=== PATIENT | male | born 1985 | race Caucasian/White ===

== ENCOUNTER 2021-10-05 08:08 | Outpatient (CLI) | payer OTHER, SELFPAY ==
--- NOTE | ~2021-10-05 | US_ITS ---
EXAMINATION: US abdomen limited EXAM DATE: 10/05/2021 08:46 INDICATION: R10.11 - Right upper quadrant pain TECHNIQUE: Multiple grayscale and Doppler images of the abdomen right upper quadrant were obtained (b y a technologist who performed the scan) and subsequently reviewed. There is no prior study for juvneal argueta. FINDINGS: The pancreatic head and body are normal in appearance. The pancreatic tail is not visualized. The l iver has normal echogenicity and contour. There are no focal liver lesions identified. There is no evidence of intrahepatic biliary duct dilation. Portal venous flow was seen in the hepatopedal, nor mal direction and has normal Doppler waveform. No right-sided hydronephrosis. Common bile duct measures 3 mm, which is normal. The gallbladder wall is normal in thickness, with ex pected amount of distention. No sonographic evidence of pericholecystic fluid. Large stone or stone s within the gallbladder. Technologist performing exam reports patient did not demonstrate sonograph ic Shafer's sign. Please note that this sign is less reliable in patients who have received pain med ication. IMPRESSION: 1. Cholelithiasis. Reviewed, dictated and finalized at location A. [employer] SUPERVISOR IMPRESSION: 1. Cholelithiasis.
== END 2021-10-05 08:09 | disposition home or self-care (01) ==
PROVIDERS: PCP Family Medicine; Visit Provider Family Medicine
DX: R10.11 Right upper quadrant pain (principal); K80.20 Calculus of gallbladder without cholecystitis without obstruction
CPT/HCPCS: 76705

== ENCOUNTER 2023-10-25 19:23 | Observation (INO) | payer OTHER, SELFPAY ==
--- NOTE | ~2023-10-25 | CT_ITS ---
EXAMINATION: CT abdomen pelvis w con DATE: 10/25/2023 21:07 INDICATION: ruq pain TECHNIQUE: Computed tomography (CT) of the abdomen and pelvis was performed with 100 mL Omnipaque-350 intravenous contrast. Automated exposure control and iterative reconstruction technique were employe d. The dose-length product was 475.77 mGy-cm. COMPARISON: Ultrasound abdomen 10/05/2021. FINDINGS: Lower thorax: Unremarkable Liver: Simple left lobe cyst. Biliary/Gallbladder: Prominent gallbladder with pericholecystic fluid/wall edema and mild inflammator y change. Likely gallstone lodged at the gallbladder neck. No bile duct dilation. Pancreas: No mass or duct dilation. Spleen: Normal. Adrenals:No mass. Kidneys: No suspicious mass, obstructing stone, or hydronephrosis. Left midpole scar. GI tract: Mild distal esophageal and gastric wall edema. Small gastric diverticulum. No small bowel d ilation. Mild dilation of the ascending and transverse colon, abrupt caliber change in the proximal d escending colon where there may be a small degree of shouldering present. Normal appendix. Mesentery/Peritoneum: No ascites, mass, or free air. Retroperitoneum: No mass. Mild atherosclerotic calcifications. Pelvis: Bladder line prostatomegaly, with calcifications. Mild bladder wall thickening in a partially distended urinary bladder. Small volume free pelvic fluid. Soft Tissues: Soft tissues and body wall unremarkable. Bones: No acute osseous finding. IMPRESSION: Mild esophagitis/gastritis. Gallbladder findings may represent acute cholecystitis in the appropriate clinical context. Mild proximal large bowel dilation, with abrupt caliber change in the proximal descending colon, wher e a small circumferential mass may be present. Recommend timely referral for colonoscopy. Borderline prostatomegaly. Cystitis versus wall thickening from incomplete urinary bladder distention or outlet obstruction. Reviewed, dictated and finalized at location K. MINER IMPRESSION: Mild esophagitis/gastritis. Gallbladder findings may represent acute cholecystitis in the appropriate clini elaine context. Mild proximal large bowel dilation, with abrupt caliber change in the proximal descending colon, where a small circumferential mass may be present. Recommend timely referral for colonoscopy. Borderline prostatomegaly. Cystitis versus wall thickening from incomplete urinary bladder distention or o utlet obstruction.
[2023-10-25 19:24] VITALS: BP 122/68; PULSE 79; RESP 16; TEMP 36.5; O2SAT 100
[2023-10-25 20:26] VITALS: BP 130/75; PULSE 71; RESP 18; O2SAT 100
[2023-10-25 20:31] LABS: Basophils Absolute Auto 0.1 K/mm3 (0.0-0.1); Basophils Percent Auto 0.5 % (0.2-1.2); Eosinophils Absolute Auto 0.1 K/mm3 (0-0.3); Eosinophils Percent Auto 0.8 % (0-4.4); Hematocrit 44.5 % (42.0-52.0); Immature Granulocyte Absolute 0.04 K/mm3 (0.00-0.031); Immature Granulocyte Percent A 0.3 % (0-0.5); Lymphocytes Absolute Auto 1.68 K/mm3 (0.9-3.2); Mean Corpuscular HGB Conc 33.7 g/dl (32-36); Mean Corpuscular Hemoglobin 31.1 pg (26-34); Mean Corpuscular Volume 92.1 fl (80-100); Mean Platelet Volume 11.9 fl (7.4-10.4); Monocytes Absolute Auto 1.2 K/mm3 (0.1-0.6); Monocytes Percent Auto 9.4 % (2.6-8.5); Neutrophils Absolute Auto 9.9 K/mm3 (1.3-6.7); Platelet Count Result 222 k/mm3 (150-375); Red Blood Count 4.83 M/mm3 (4.6-6.20); Red Cell Distribution Width 12.4 % (11.5-14.5)
[2023-10-25 20:42] LABS: Alanine Aminotransferase 17 U/L (6-50); Albumin Level 3.8 g/dL (3.5-5.1); Alkaline Phosphatase 63 U/L (38-126); Anion Gap 6 mmol/L (8-16); Aspartate Amino Transferase 19 U/L (17-59); Bilirubin,Total 1.1 mg/dL (0.2-1.3); Blood Urea Nitrogen 8 mg/dL (9-20); Carbon Dioxide 26 mmol/L (22-30); Chloride 103 mmol/L (98-107); Estimated CRCL calculation 99 ml/min; Estimated Glomerular Filt Rate > 60; Glucose 99 mg/dL (65-110); Lipase 65 U/L (23-300); Potassium 3.7 mmol/L (3.4-5.0); Sodium 135 mmol/L (137-145)
[2023-10-25 20:42] LABS: Appearance Urine Clear (Clear); Bilirubin Urine Negative (Negative); Blood Urine Negative (Negative); Color Urine Yellow (Yellow); Glucose Urine UA Negative (Negative); Ketones Urine 2+ mg/dL (Negative); Leukocyte Esterase Ur Negative LEU/UL (Negative); Nitrate Urine Negative (Negative); Protein Urine Negative (Negative); Specific Grav Ur 1.016 (1.001-1.035); Urobilinogen Urine 0.2 mg/dL (<2.0); pH Urine 5.5 (5.0-9.0)
[2023-10-25 20:46] LABS: Add Urine Microscopic? NO
--- NOTE | 2023-10-25 20:51 | ED.ABDPAIN ---
HPI - Abdominal Pain General Chief Complaint: Abdominal Pain Stated Complaint: abd pain Time Seen by Provider: 10/25/23 20:04 Source: patient Mode of arrival: ambulatory Limitations: no limitations History of Present Illness HPI narrative: This is a 38-year-old male that presents to the emergency department for right upper quadrant pain. Ongoing over the last 3 days. Worse after eating. Reports he has been told in the past that he has gallstones. He took Ibuprofen today with little relief. Denies fevers or vomiting. Related Data Allergies Allergy/AdvReac Type Severity Reaction Status Date / Time No Known Allergies Allergy Verified 10/25/23 20:27 Review of Systems Review of Systems: CONSTITUTIONAL: Denies fever GASTROINTESTINAL: Reports abdominal pain. Denies nausea, vomiting, or diarrhea. All systems reviewed & are unremarkable except as noted in HPI and below PMFSH Past Medical History Medical History (Updated 10/25/23 @ 23:09 by Shalini Esposito PA-C) BMI 25.0-25.9,adult Essential (primary) hypertension Mixed hyperlipidemia RUQ abdominal pain Family History Family History Mother Family history of malignant melanoma Social History Social History Smoking status: Never smoker Alcohol intake: current Exam Narrative: GENERAL: Well-appearing, well-nourished, and in no acute distress. HEAD: Normocephalic, atraumatic. EYES: EOMI. CHEST: Clear to auscultation. No respiratory distress. No wheezes rales or rhonchi HEART: Regular rate and rhythm. No murmur heard. Normal peripheral pulses. ABDOMEN: Soft, nondistended, normal active bowel sounds. Tender to palpation in the right upper quadrant, without guarding EXTREMITIES: Normal range of motion. No edema. SKIN: Warm, dry, no rash. NEURO: No focal deficits. Alert and oriented x3. PSYCH: Normal mood and affect Course Course Emergency Course: Patient updated on his workup and recommendation for admission Consultations Consultation #1: Spoke with Dr. Lowry about patient and workup. Would like patient admitted, remain NPO, hydration, and antibiotics started Date: 10/25/23 Vital Signs Vital signs: Vital Signs Temperature 97.7 F 10/25/23 19:24 Pulse Rate 79 02/03/24 19:24 Respiratory Rate 16 10/25/23 19:24 Blood Pressure 122/68 10/25/23 19:24 Pulse Oximetry 100 10/25/23 19:24 Temperature 97.7 F 10/25/23 19:24 Pulse Rate 71 10/25/23 20:26 Respiratory Rate 18 10/25/23 20:26 Blood Pressure 130/75 10/25/23 20:26 Pulse Oximetry 100 10/25/23 20:26 MDM - Abdominal Pain MDM Narrative Medical decision making narrative: Patient presents to the emergency department for right upper quadrant pain. Ongoing over the last 3 days. He is afebrile and nontoxic appearing. His vitals are stable. CBC with leukocytosis to 13. Metabolic panel and lipase without concerning findings. UA without evidence of infection. CT abdomen and pelvis shows findings of esophagitis /gastritis. As well as acute cholecystitis. Also shows a possible colon mass. Prostatomegaly. Cystitis versus incomplete distension. Spoke with Dr. Lowry about patient and workup. Would like patient admitted, remain NPO, hydration, and antibiotics started. Patient updated on his workup and recommendation for admission Differential Diagnosis Differential diagnosis: Likely gastroenteritis, pancreatitis and other (cholecystitis, biliary colic) Lab Data Attestation: I reviewed the patient's lab results. 10/25/23 20:26 10/25/23 20:26 Labs: Lab Results 10/25/23 10/25/23 Range/Units 20:26 20:37 WBC 13.0 H (4.5-10.0) K/mm3 RBC 4.83 (4.6-6.20) M/mm3 Hgb 15.0 (14.0-18.0) g/dL Hct 44.5 (42.0-52.0) % MCV 92.1 (80-100) fl MCH 31.1 (26-34) pg MCHC 33.7 (32-36) g/dl RDW 12.4 (11.5-14.5) %
[2023-10-25] MEDS: ONDANSETRON INJ 4 MG/2 ML VIAL IV PUSH (20:56)
[2023-10-25] MEDS: MORPHINE SULFATE (*CRX) 4 MG/ML INJ IV PUSH (20:56)
[2023-10-25] MEDS: SODIUM CHLORIDE 0.9% IV 1,000 ML 999 ML IV CONT (20:59)
[2023-10-25] MEDS: HYDROmorphone HCL INJ (*CRX) 1 MG/ML SYR 0.5 MG IV PUSH (22:59)
[2023-10-25] MEDS: PANTOPRAZOLE SODIUM IV 40 MG VIAL IV PUSH (23:00)
[2023-10-25 23:05] VITALS: BP 152/98; PULSE 67; RESP 16; O2SAT 94
[2023-10-26] VITALS (14 sets, daily range): BP systolic 110–144; BP diastolic 71–86; PULSE 65–99; RESP 14–20; TEMP 36.1–37.3; O2SAT 94–100; BMI 25.4
--- NOTE | 2023-10-26 00:09 | ADMGEN ---
This patient, Jean Carlos Kramer, was admitted to Medical Room 257-01. Patient/family oriented to hospital policies and general routines including ID bracelet, bed and alarms, visiting hours, pain management, procedures, bathroom and other care routines, personal items, smoking policy, room service/diet, and visiting hours. Information on how to activate the Rapid Response Team has been discussed. Patient/Family are encouraged to report perceived risks to care and to ask questions if they do not understand what they are told or what they should do.
[2023-10-26] MEDS: SODIUM CHLORIDE 0.9% IV 1,000 ML 125 ML IV CONT ×2 (00:20→18:26)
[2023-10-26] MEDS: MORPHINE SULFATE (*CRX) 4 MG/ML INJ IV PUSH ×5 (00:22→12:10)
[2023-10-26] MEDS: metroNIDAZOLE 500 MG/ISO 100ML 500 MG/100 ML BAG 100 MG IVPB (00:22)
[2023-10-26 07:53] LABS: Basophils Percent Auto 0.2 % (0.2-1.2); Hemoglobin 15.7 g/dL (14.0-18.0); Immature Granulocyte Absolute 0.06 K/mm3 (0.00-0.031); Immature Granulocyte Percent A 0.4 % (0-0.5); Lymphocytes Absolute Auto 0.82 K/mm3 (0.9-3.2); Lymphocytes Percent Auto 5.7 % (18.3-44.2); Mean Corpuscular HGB Conc 34.1 g/dl (32-36); Mean Corpuscular Hemoglobin 31.5 pg (26-34); Mean Corpuscular Volume 92.2 fl (80-100); Mean Platelet Volume 11.9 fl (7.4-10.4); Monocytes Absolute Auto 1.7 K/mm3 (0.1-0.6); Monocytes Percent Auto 11.6 % (2.6-8.5); Neutrophils Absolute Auto 11.7 K/mm3 (1.3-6.7); Neutrophils Percent Auto 82.1 % (45.5-73.1); Platelet Count Result 242 k/mm3 (150-375); Red Blood Count 4.99 M/mm3 (4.6-6.20); Red Cell Distribution Width 12.4 % (11.5-14.5); White Blood Count 14.3 K/mm3 (4.5-10.0)
[2023-10-26 08:04] LABS: Alanine Aminotransferase 306 U/L (6-50); Albumin Level 3.8 g/dL (3.5-5.1); Alkaline Phosphatase 97 U/L (38-126); Anion Gap 3 mmol/L (8-16); Aspartate Amino Transferase 308 U/L (17-59); Bilirubin,Total 2.6 mg/dL (0.2-1.3); Blood Urea Nitrogen 5 mg/dL (9-20); Calcium 8.6 mg/dL (8.4-10.2); Carbon Dioxide 28 mmol/L (22-30); Chloride 103 mmol/L (98-107); Estimated CRCL calculation 110 ml/min; Estimated Glomerular Filt Rate > 60; Glucose 134 mg/dL (65-110); Prothrombin Time 13.6 Seconds (11.1-14.7); Sodium 134 mmol/L (137-145)
[2023-10-26] MEDS: PIPERACILLN/TAZ 3.375GM/NS50ML 3.375 GM/50 ML BAG IVPB ×3 (09:27→20:35)
[2023-10-26] MEDS: PANTOPRAZOLE SODIUM IV 40 MG VIAL IV PUSH (09:27)
--- NOTE | 2023-10-26 10:30 | PM.IMHP ---
H&P: HPI History of Present Illness Date/Time: 10/26/23 10:30 Chief Complaint: Right upper quadrant epigastric abdominal pain. Narrative: Patient is a 38-year-old white male who presents to the emergency room with a 2 to 3 day history of worsening right upper quadrant abdominal pain. He states he has had intermittent episodes of pain which were not this bad over the past several months and even has had pain going back a few years. On workup in the emergency room was noted to [place] [address]. No fever. No tachycardia. Liver enzymes were all normal. CT scan abdomen pelvis showed a dilated appendix with thickening of the gallbladder wall a small amount of pericholecystic fluid. There appeared to be a gallstone lodged within the neck of the gallbladder. Also noted on CT scan was and possible transition point in the proximal descending colon without high-grade obstruction. Colon mass was not excluded and recommendation was made by radiologist to get a outpatient colonoscopy. Review of Systems Review of Systems: The remainder of the review of systems to include constitutional, HEENT, cardiovascular, respiratory, GI, , integumentary, musculoskeletal, endocrine, immunologic, hematologic, psychiatric, and neurologic are all negative except for which is mentioned above in the HPI. Specifically the patient denies any changes in bowel habits. There has been no dark tarry stools or bright red blood per rectum. He has had no weight changes. [facility], [facility] Past Medical History Medical History (Updated 10/25/23 @ 23:09 by Shalini Esposito PA-C) BMI 25.0-25.9,adult Essential (primary) hypertension Mixed hyperlipidemia RUQ abdominal pain Family History Family History (Updated 10/26/23 @ 00:36 by Deven Tapia RN) Mother Family history of malignant melanoma Breast cancer Social History Social History Smoking status: Never smoker Alcohol intake: current Drinks per week: 10 Substance use: current Substance use type: marijuana Other substance usage details: gummies occasionally Do You Feel Safe in your Home?: Yes Lack of Transportation: No Lack of Food: Never True Current Housing: I Have Housing Concerned About Future Housing: No Difficulty Paying Gas/Electric Bills: No Difficulty Paying for Meds: No Currently Unemployed: No Education: Master's Degree or Higher Difficulty w/ Childcare or Family Care: No Spiritual care concerns: No Meds Home Medications and Allergies Home Medications Medication Instructions Recorded Confirmed Type atorvastatin 20 mg tablet 20 mg PO HS 10/26/23 10/26/23 History finasteride 1 mg tablet 1 mg PO DAILY 10/26/23 10/26/23 History lisinopril 10 mg tablet 10 mg PO DAILY 10/26/23 10/26/23 History Allergies Allergy/AdvReac Type Severity Reaction Status Date / Time No Known Allergies Allergy Verified 10/26/23 00:30 Vital Signs Vital Signs - 24 hr 10/25/23 19:24 10/25/23 20:26 10/25/23 23:05 Temperature 36.5 C Pulse Rate 79 71 67 Respiratory Rate 16 18 16 Blood Pressure 122/68 130/75 152/98 H Pulse Oximetry 100 100 94 Oxygen Delivery 10/26/23 00:39 10/26/23 00:00 10/26/23 04:00 Temperature 36.8 C 36.8 C Pulse Rate 74 65 Respiratory Rate 16 18 Blood Pressure 144/80 H 140/78 Pulse Oximetry 100 95 Oxygen Delivery Room Air 10/26/23 08:00 Temperature 37.3 C Pulse Rate 74 Respiratory Rate 16 Blood Pressure 144/86 H Pulse Oximetry 97 Oxygen Delivery Exam Const: General: comfortable and no acute distress HENMT: Ears: TM's normal bilaterally Face/Nose/Sinus: Normal nares present Mouth: Yes moist mucous membranes Eyes: General: appearance normal, both eyes and all related structures Sclera: sclerae normal Pupils: Equal, round and reactive pupils present EOM: EOMs intact bilaterally Neck: Neck: supple and no JVD R
--- NOTE | 2023-10-26 11:51 | WPDHPUPDATE1 ---
History and Physical Update Update Date/Time: 10/26/23 11:51 History and Physical has been reviewed, including an updated exam of the patient. There are NO changes in the patient's condition. Risks, benefits, and alternatives have been discussed and questions answered. Patient agrees to proceed with procedure.
--- NOTE | 2023-10-26 14:02 | WPDANESEPPF ---
Anes - Initial Pre Proc Eval Date/Time: 10/26/23 14:02 Surgeon: Cortez Lowry MD Pre Op Diagnosis: Acute Cholecystitis Patient Data Age: 38 Gender: M Height: 1.78 m Weight: 80.3 kg Last Vital Signs Temp 37.3 C 10/26/23 08:00 Pulse 74 10/26/23 08:00 Resp 16 10/26/23 08:00 BP 144/86 H 10/26/23 08:00 Pulse Ox 97 10/26/23 08:00 O2 Del Method Room Air 10/26/23 09:30 Allergies Allergy/AdvReac Type Severity Reaction Status Date / Time No Known Allergies Allergy Verified 10/26/23 00:30 Home Medications Medication Instructions Recorded Confirmed Type atorvastatin 20 mg tablet 20 mg PO HS 10/26/23 10/26/23 History finasteride 1 mg tablet 1 mg PO DAILY 10/26/23 10/26/23 History lisinopril 10 mg tablet 10 mg PO DAILY 10/26/23 10/26/23 History Laboratory Tests 10/25/23 10/25/23 10/26/23 20:26 20:37 07:43 WBC 13.0 H K/mm3 14.3 H K/mm3 (4.5-10.0) (4.5-10.0) RBC 4.83 M/mm3 4.99 M/mm3 (4.6-6.20) (4.6-6.20) Hgb 15.0 g/dL 15.7 g/dL (14.0-18.0) (14.0-18.0) Hct 44.5 % 46.0 % (42.0-52.0) (42.0-52.0) MCV 92.1 fl 92.2 fl (80-100) (80-100) MCH 31.1 pg 31.5 pg (26-34) (26-34) MCHC 33.7 g/dl 34.1 g/dl (32-36) (32-36) RDW 12.4 % 12.4 % (11.5-14.5) (11.5-14.5) Plt Count 222 k/mm3 242 k/mm3 (150-375) (150-375) MPV 11.9 H fl 11.9 H fl (7.4-10.4) (7.4-10.4) Immature Gran % (Auto) 0.3 % 0.4 % (0-0.5) (0-0.5) Neut % (Auto) 76.0 H % 82.1 H % (45.5-73.1) (45.5-73.1) Lymph % (Auto) 13.0 L % 5.7 L % (18.3-44.2) (18.3-44.2) Pitkin % (Auto) 9.4 H % 11.6 H % (2.6-8.5) (2.6-8.5) Eos % (Auto) 0.8 % 0.0 % (0-4.4) (0-4.4) Baso % (Auto) 0.5 % 0.2 % (0.2-1.2) (0.2-1.2) Lymph # (Auto) 1.68 K/mm3 0.82 L K/mm3 (0.9-3.2) (0.9-3.2) Pitkin # (Auto) 1.2 H K/mm3 1.7 H K/mm3 (0.1-0.6) (0.1-0.6) Eos # (Auto) 0.1 K/mm3 0.0 K/mm3 (0-0.3) (0-0.3) Baso # (Auto) 0.1 K/mm3 0.0 K/mm3 (0.0-0.1) (0.0-0.1) Abs Immat Gran (auto) 0.04 H K/mm3 0.06 H K/mm3 (0.00-0.031) (0.00-0.031) Absolute Neuts (auto) 9.9 H K/mm3 11.7 H K/mm3 (1.3-6.7) (1.3-6.7) Absolute Nucleated RBC 0.0 K/mm3 0.0 K/mm3 (0.0-0.012) (0.0-0.012) Nucleated RBC % 0.0 % 0.0 % (0.0-0.2) (0.0-0.2) PT 13.6 Seconds (11.1-14.7) INR 1.0 Sodium 135 L mmol/L 134 L mmol/L (137-145) (137-145) Potassium 3.7 mmol/L 4.0 mmol/L (3.4-5.0) (3.4-5.0) Chloride 103 mmol/L 103 mmol/L (98-107) (98-107) Carbon Dioxide 26 mmol/L 28 mmol/L (22-30) (22-30) Anion Gap 6 L mmol/L 3 L mmol/L (8-16) (8-16) BUN 8 L mg/dL 5 L mg/dL (9-20) (9-20) Creatinine 0.90 mg/dL 0.80 mg/dL (0.7-1.3) (0.7-1.3) Estim Creat Clear Calc 99 ml/min 110 ml/min Estimated GFR > 60 > 60 (59 - ) (59 - ) Glucose 99 mg/dL 134 H mg/dL (65-110) (65-110) Calcium 9.0 mg/dL 8.6 mg/dL (8.4-10.2) (8.4-10.2) Total Bilirubin 1.1 mg/dL 2.6 H mg/dL (0.2-1.3) (0.2-1.3) AST 19 U/L 308 H U/L (17-59) (17-59) ALT 17 U/L 306 H U/L (6-50) (6-50) Alkaline Phosphatase 63 U/L 97 U/L (38-126) (38-126) Total Protein 7.0 g/dL 7.0 g/dL (6.3-8.2) (6.3-8.2) Albumin 3.8 g/dL 3.8 g/dL (3.5-5.1) (3.5-5.1) Lipase 65 U/L (23-300) Urine Color Yellow (Yellow) Urine Appearance Clear (Clear) Urine pH 5.5 (5.0-9.0) Ur Specific Adams 1.016 (1.001-1.035) Urine Protein Negative mg/dL (Negative) Urine Glucose (UA) Negative mg/dL (Negative) Urine Ketones 2+ H mg/dL (Negative) Ur Blood (Man) Negative (Negative) Urine Nitrate Negative (Negative) Urine Bilirubin Nega
--- NOTE | 2023-10-26 14:10 | PC.NURSE ---
Patient taken down to Pre-op
[2023-10-26] MEDS: BUPivacaine HCL 0.5% PF 30 ML VIAL INFILTRATE (14:58)
[2023-10-26] MEDS: LIDO 1%/EPINEPHRINE 1:100,000 20 ML VIAL 30 ML INFILTRATE (14:58)
[2023-10-26] MEDS: KETOROLAC 15 MG/ML VIAL (*BKC) IV PUSH (16:21)
[2023-10-26] MEDS: LACTATED RINGERS 1,000 ML 30 ML IV CONT ×2 (16:44)
--- NOTE | 2023-10-26 16:56 | W.PM.PROC2 ---
Procedure Note - Detailed Date of Procedure 10/26/23 Pre-op Diagnosis Acute Cholecystitis secondary to cholelithiasis Post-op Diagnosis Same Procedure Performed Laparoscopic cholecystectomy Surgeon Cortez Lowry MD District Captain WALE Reynoso Anesthesia General Indications Patient is a year old white male who has had intermittent mild quadrant abdominal pain for few years. Last 3 days he has had progressively worsening right upper quadrant abdominal pain which is more constant. He presents to the emergency room was found to have acute cholecystitis secondary to an impacted gallstone within the neck of the gallbladder by CT scan. The gallbladder wall was thickened and edematous and there was some pericholecystic fluid. White blood cell count was elevated at 13,000. He presents now for a emergent laparoscopic cholecystectomy. Findings Gallbladder was markedly distended and very thickened and edematous. A small portion the gallbladder wall appeared to be somewhat gangrenous. There is no perforation of the gallbladder wall. A large gallstone measuring 3 to 4 cm was noted to be impacted within the neck of the gallbladder. Description of Procedure After informed consent was obtained patient brought to the operating room placed supine position and general endotracheal anesthesia was administered. The abdomen is then prepped and draped usual sterile fashion. A time-out was then performed correctly identifying the patient as well as procedure to be performed. I then for the abdomen left upper quadrant utilizing a 5mm Optiview port. Once inside the abdomen insufflated to adequate pneumoperitoneum 15mmHg of CO2. I then placed a 5mm periumbilical trocar port and then a 10mm epigastric trocar port and 2 more 5mm right subcostal ports all under direct visualization. The gallbladder was markedly distended and edematous. The gallbladder was too tense still initially be able to hold with a laparoscopic grasper and so I proceeded to decompress the gallbladder by inserting a laparoscopic aspirating needle into the dome of the gallbladder. Thick dark almost black sludge aspirated from the gallbladder. I was then able to hold the gallbladder dome laparoscopic grasper and elevated the gallbladder over the right half of the towards right shoulder. Adhesions of the omentum to the infundibular gallbladder wall were bluntly the tip of the irrigation device. This then allowed me to try to reduce the impacted gallstone within the neck of the gallbladder which I was able to successfully do bluntly. I then was able to place a 2nd grasper on the infundibular gallbladder. I then proceeded to strip down the edematous and thickened visceral peritoneum off of the infundibular gallbladder. I then found the cystic duct this structure was then dissected out circumferentially. The cystic artery was identified and dissected out circumferentially as well. Posterior wall the gallbladder the infant was dissected free until I had the critical view. At this point I placed 2 clips proximally cystic duct and 2 clips distally high on infundibular gallbladder. The cystic duct was then divided with Endo Young. In a similar fashion cystic artery clipped and divided as well. I then proceeded to dissect the gallbladder off the liver bed. Due to the very inflamed nature of the gallbladder there did not appear to be a good plane dissection. At various times during the dissection the gallbladder off of the liver I did encounter some bleeding when I dissected into the liver bed. Hemostasis was achieved quickly with electrocautery. The gallbladder wall was opened during this dissection and spillage of bile did occur but this was aspirated quickly as possible. There is no spillage of any gallstones. With the large rent the gallbladder wall I then went ahead remove the large gallstone within the gallbladder lumen which measured about 3 to 4 cm in diameter. It was placed into an Endo-Catch bag and brou
[2023-10-26] MEDS: HYDROcodone/acetaminophen (*CRX) 5-325 MG TABLET 1 TAB PO (18:55)
[2023-10-26] MEDS: oxyCODONE HCL (*CRX) 5 MG TAB IR PO (21:09)
[2023-10-27] VITALS (7 sets, daily range): BP systolic 109–128; BP diastolic 64–76; PULSE 77–93; RESP 14–20; TEMP 36.3–36.8; O2SAT 95–98
[2023-10-27] MEDS: PIPERACILLN/TAZ 3.375GM/NS50ML 3.375 GM/50 ML BAG IVPB ×4 (01:16→20:30)
[2023-10-27] MEDS: HYDROcodone/acetaminophen (*CRX) 5-325 MG TABLET 1 TAB PO ×4 (01:21→22:27)
[2023-10-27] MEDS: SODIUM CHLORIDE 0.9% IV 1,000 ML 125 ML IV CONT (03:36)
[2023-10-27 05:38] LABS: Basophils Percent Auto 0.2 % (0.2-1.2); Hematocrit 40.6 % (42.0-52.0); Hemoglobin 13.3 g/dL (14.0-18.0); Immature Granulocyte Absolute 0.07 K/mm3 (0.00-0.031); Immature Granulocyte Percent A 0.5 % (0-0.5); Lymphocytes Absolute Auto 1.23 K/mm3 (0.9-3.2); Lymphocytes Percent Auto 8.3 % (18.3-44.2); Mean Corpuscular HGB Conc 32.8 g/dl (32-36); Mean Corpuscular Hemoglobin 30.9 pg (26-34); Mean Corpuscular Volume 94.2 fl (80-100); Monocytes Absolute Auto 1.3 K/mm3 (0.1-0.6); Monocytes Percent Auto 8.8 % (2.6-8.5); Neutrophils Absolute Auto 12.2 K/mm3 (1.3-6.7); Neutrophils Percent Auto 82.2 % (45.5-73.1); Platelet Count Result 214 k/mm3 (150-375); Red Blood Count 4.31 M/mm3 (4.6-6.20); Red Cell Distribution Width 12.6 % (11.5-14.5); White Blood Count 14.8 K/mm3 (4.5-10.0)
[2023-10-27 05:53] LABS: Alanine Aminotransferase 180 U/L (6-50); Albumin Level 2.9 g/dL (3.5-5.1); Alkaline Phosphatase 71 U/L (38-126); Anion Gap 4 mmol/L (8-16); Aspartate Amino Transferase 82 U/L (17-59); Bilirubin,Total 1.2 mg/dL (0.2-1.3); Blood Urea Nitrogen 9 mg/dL (9-20); Carbon Dioxide 26 mmol/L (22-30); Chloride 105 mmol/L (98-107); Estimated CRCL calculation 110 ml/min; Estimated Glomerular Filt Rate > 60; Glucose 118 mg/dL (65-110); Potassium 3.8 mmol/L (3.4-5.0); Sodium 135 mmol/L (137-145)
[2023-10-27] MEDS: PANTOPRAZOLE SODIUM IV 40 MG VIAL IV PUSH (09:31)
--- NOTE | 2023-10-27 10:26 | PM.PNGS ---
Progress Note: A&P Assessment and Plan (1) Acute cholecystitis: Code(s): K81.0 - Acute cholecystitis Status: Acute Assessment and Plan: Patient doing well postop day 1 following laparoscopic cholecystectomy. GUS drain in place with some dark bloody drainage, will continue to monitor GUS drain for another day. There is a fair amount of drainage leaking around the drain, continue to change dressing as needed. Continue IV Zosyn. WBC still at 14,000 today, he is afebrile, LFTs trending down. Advanced to a regular diet. Encouraged ambulating more today and sitting up in the chair. (2) Colonic mass: Code(s): K63.89 - Other specified diseases of intestine Status: Acute Assessment and Plan: Incidentally noted on CT on admission. Will need colonoscopy as an outpatient. Plan I have discussed the patient's case and plan of care with Dr. Lowry. Subjective Subjective Date/Time Seen: 10/27/23 10:26 Patient reports: tolerating liquids well, voiding w/o difficulty, no flatus, no bowel movement and afebrile Interval history: This is a 38 yo man who presented with acute cholecystitis and s/p laparoscopic cholecystectomy yesterday by Dr. Lowry. He has a GUS drain in place and per nursing, this has been leaking around the GUS drain overnight. They have had to change the dressing about 3 times through the evening. She showed me the dressing that is completely saturated with some dark yellow and bloody drainage. He has some incisional soreness, but denies any significant abdominal pain. Denies nausea or vomiting. Tolerating his diet this morning. Review of Systems Review of Systems: All systems reviewed & are unremarkable except as noted in HPI and below Exam Const: General: comfortable and no acute distress Orientation/consciousness: patient oriented x3 GI: Inspection: non-distended Auscultation: normal bowel sounds Other: Abdomen soft and nondistended. He is appropriately tender near his incisions and RUQ. He has a RUQ GUS drain with a small amount of serosanguineous drainage on the dressing, drainage in the drain appears dark red bloody drainage with some yellow/brown drainage in tubing. Other incisions are dry with glue intact. Objective Data Vital Signs Vital Signs: Vital Signs - 24 hr 10/26/23 12:00 10/26/23 16:44 10/26/23 16:45 Temperature 97.8 F 98.2 F Pulse Rate 83 90 87 Respiratory Rate 14 20 19 Blood Pressure 132/82 136/81 122/78 Pulse Oximetry 94 98 100 Oxygen Delivery Simple Face Mask Simple Face Mask Oxygen Flow Rate 10 10 10/26/23 17:00 10/26/23 17:15 10/26/23 17:30 Temperature Pulse Rate 99 86 85 Respiratory Rate 16 20 19 Blood Pressure 135/81 133/76 123/79 Pulse Oximetry 96 96 95 Oxygen Delivery Room Air Room Air Room Air Oxygen Flow Rate 10/26/23 17:36 10/26/23 17:55 10/26/23 18:10 Temperature 98.3 F Pulse Rate 90 79 83 Respiratory Rate 20 16 16 Blood Pressure 124/79 134/74 134/78 Pulse Oximetry 95 95 95 Oxygen Delivery Room Air Oxygen Flow Rate 10/26/23 18:40 10/26/23 20:00 10/26/23 20:00 Temperature 96.9 F L Pulse Rate 84 73 Respiratory Rate 16 20 Blood Pressure 128/71 110/71 Pulse Oximetry 95 97 Oxygen Delivery Room Air Oxygen Flow Rate 10/27/23 00:00 10/27/23 04:00 10/27/23 08:00 Temperature 97.4 F L 97.5 F L 97.7 F Pulse Rate 86 77 89 Respiratory Rate 20 20 18 Blood Pressure 119/70 109/70 119/66 Pulse Oximetry 98 98 98 Oxygen Delivery Oxygen Flow Rate Intake/Output Intake/Output: Intake & Output 10/24/23 10/25/23 10/26/23 10/27/23 23:59 23:59 23:59 23:59 Intake Total 1000 1650 1290 Output Total 75 15 Balance 1000 1575 1275 Meds/Results Medications: Active Medications Generic Name Dose Route Start Last Admin Trade Name Freq PRN Reason Stop Dose Admin Acetaminophen 1,000 mg 10/26/23 16:46 Acetaminophen 500 Mg Tablet PO Q6H PRN Mild Pain (1-3) or Fever Hydrocodon
[2023-10-27] MEDS: oxyCODONE HCL (*CRX) 5 MG TAB IR PO (17:42)
[2023-10-28] MEDS: PIPERACILLN/TAZ 3.375GM/NS50ML 3.375 GM/50 ML BAG IVPB ×3 (02:13→13:59)
[2023-10-28] MEDS: HYDROcodone/acetaminophen (*CRX) 5-325 MG TABLET 1 TAB PO ×2 (02:16→07:40)
[2023-10-28 04:00] VITALS: BP 103/64; PULSE 77; RESP 20; TEMP 36.3; O2SAT 95
[2023-10-28 05:41] LABS: Hematocrit 39.9 % (42.0-52.0); Hemoglobin 13.2 g/dL (14.0-18.0); Mean Corpuscular HGB Conc 33.1 g/dl (32-36); Mean Corpuscular Volume 93.7 fl (80-100); Mean Platelet Volume 12.3 fl (7.4-10.4); Platelet Count Result 199 k/mm3 (150-375); Red Blood Count 4.26 M/mm3 (4.6-6.20); Red Cell Distribution Width 12.4 % (11.5-14.5); White Blood Count 9.9 K/mm3 (4.5-10.0)
[2023-10-28 05:53] LABS: Alanine Aminotransferase 122 U/L (6-50); Albumin Level 2.8 g/dL (3.5-5.1); Alkaline Phosphatase 70 U/L (38-126); Anion Gap 4 mmol/L (8-16); Aspartate Amino Transferase 49 U/L (17-59); Bilirubin,Total 1.1 mg/dL (0.2-1.3); Blood Urea Nitrogen 9 mg/dL (9-20); Calcium 8.1 mg/dL (8.4-10.2); Carbon Dioxide 28 mmol/L (22-30); Chloride 106 mmol/L (98-107); Estimated CRCL calculation 99 ml/min; Estimated Glomerular Filt Rate > 60; Glucose 93 mg/dL (65-110); Potassium 3.4 mmol/L (3.4-5.0); Sodium 138 mmol/L (137-145)
[2023-10-28 08:00] VITALS: BP 116/70; PULSE 70; RESP 15; TEMP 36.4; O2SAT 100
[2023-10-28] MEDS: PANTOPRAZOLE SODIUM IV 40 MG VIAL IV PUSH (08:48)
[2023-10-28 12:00] VITALS: BP 137/81; PULSE 72; RESP 16; TEMP 36.6; O2SAT 100
--- NOTE | 2023-10-28 12:43 | PM.PNGS ---
Progress Note: A&P Assessment and Plan (1) Acute cholecystitis: Code(s): K81.0 - Acute cholecystitis Status: Acute Assessment and Plan: Patient doing well postop day 2 following laparoscopic cholecystectomy. WBC down to normal and LFTs trending down. Total bilirubin normal. Will discuss possible discharge and GUS drain management with Dr. Lowry (2) Colonic mass: Code(s): K63.89 - Other specified diseases of intestine Status: Acute Assessment and Plan: Incidentally noted on CT on admission. Will need colonoscopy as an outpatient. Subjective Subjective Date/Time Seen: 10/28/23 12:43 Post Op day: 2 (laparoscopic cholecystectomy) Patient reports: no new complaints, feels better, pain is less, tolerating a regular diet, voiding w/o difficulty, flatus and afebrile Interval history: Patient feeling better this morning. Reports having some pain near the GUS drain site, but better than yesterday. Denies nausea or vomiting. He is eating well. Labs this am showed a normal WBC and LFTs trending down with a normal bilirubin. The drainage around the GUS drain has improved and only had to change his dressing around the GUS drain once. No other complaints at this time. Exam Const: General: comfortable and no acute distress Orientation/consciousness: patient oriented x3 GI: Inspection: non-distended GI Palp: Yes Soft to palpation, Yes Tenderness to palpation present (GI) (Mild tenderness in the right upper quadrant and near right-sided GUS drain), No Guarding due to palpation present (GI) and No Rebound tenderness present Auscultation: normal bowel sounds Other: GUS drain with darker drainage today appearing brown-red Objective Data Vital Signs Vital Signs: Vital Signs - 24 hr 10/27/23 16:00 10/27/23 20:00 10/27/23 20:00 Temperature 97.7 F 98.3 F Pulse Rate 93 86 Respiratory Rate 16 20 Blood Pressure 128/76 109/69 Pulse Oximetry 98 96 Oxygen Delivery Room Air 10/27/23 23:50 10/28/23 04:00 10/28/23 08:00 Temperature 98.3 F 97.3 F L 97.6 F Pulse Rate 81 77 70 Respiratory Rate 20 20 15 Blood Pressure 112/66 103/64 116/70 Pulse Oximetry 95 95 100 Oxygen Delivery 10/28/23 09:15 Temperature Pulse Rate Respiratory Rate Blood Pressure Pulse Oximetry Oxygen Delivery Room Air Intake/Output Intake/Output: Intake & Output 10/25/23 10/26/23 10/27/23 10/28/23 23:59 23:59 23:59 23:59 Intake Total 1000 1650 2338 910 Output Total 75 15 Balance 1000 1575 2323 910 Meds/Results Medications: Active Medications Generic Name Dose Route Start Last Admin Trade Name Freq PRN Reason Stop Dose Admin Acetaminophen 1,000 mg 10/26/23 16:46 Acetaminophen 500 Mg Tablet PO Q6H PRN Mild Pain (1-3) or Fever Hydrocodone Bitart/Acetaminophen 1 tab 10/26/23 16:46 10/28/23 07:40 Hydrocodone/Acetaminophen (*Crx) 5-325 Mg Tablet PO 1 tab Q4H PRN Administration Pain Rated 4-6 Fentanyl Citrate 25 mcg 10/26/23 14:06 Fentanyl Citrate Inj (*Crx) 100 Mcg/2 Ml Vial IV PUSH Q2M PRN Pain Hydromorphone HCl 1 mg 10/26/23 16:46 Hydromorphone Hcl Inj (*Crx) 1 Mg/Ml Syr IV PUSH Q3H PRN Pain Rated 7-10 Piperacillin/Tazobactam/Dextrose 3.375 gm in 50 mls @ 100 mls/hr 10/26/23 20:00 10/28/23 09:16 Zosyn 3.375 Gm/Ns 50 Ml IVPB Infused Q6H CAN Infusion Ondansetron HCl 4 mg 10/25/23 22:24 Ondansetron Inj 4 Mg/2 Ml Vial IV PUSH Q4H PRN Nausea Ondansetron HCl 4 mg 10/26/23 14:06 Ondansetron Inj 4 Mg/2 Ml Vial IV PUSH ONCE PRN Nausea Oxycodone HCl 5 mg 10/26/23 16:46 10/27/23 17:42 Oxycodone Hcl (*Crx) 5 Mg Tab Ir PO 5 mg Q4H PRN Administration Pain Rated 7-10 Pantoprazole Sodium 40 mg 10/26/23 09:00 10/28/23 08:48 Pantoprazole Sodium Iv 40 Mg Vial IV PUSH 40 mg QAM CAN Administration Radiology Results: ITS Impressions Abdomen/Pelvis CT 10/25/23 21:16
--- NOTE | 2023-10-28 14:09 | PM.DS ---
DS: Admitting Diagnosis Discharge Date 10/28/2023 Admitting Diagnosis Acute cholecystitis DS: Discharge Diagnosis Discharge Diagnosis (1) Acute cholecystitis: Code(s): K81.0 - Acute cholecystitis Status: Acute (2) Colonic mass: Code(s): K63.89 - Other specified diseases of intestine Status: Acute DS: Summary Hospital Course Reason for hospitalization: This is a 38-year-old man who presented to the ER for evaluation of right upper quadrant abdominal pain ongoing for 2-3 days. Workup in the ER showed [place] [address]. Normal liver enzymes. CT scan of the abdomen and pelvis showed a prominent gallbladder with thickening of the gallbladder wall and a small amount of pericholecystic fluid with a gallstone lodged in the neck of the gallbladder. Also incidentally noted was a possible transition point in the proximal descending colon without high-grade obstruction, with a colon mass not excluded and recommending an outpatient colonoscopy by the radiologist. The patient was admitted for surgical evaluation and started on IV antibiotics. Hospital Course: He was taken to the OR on 10/26/2023 for a laparoscopic cholecystectomy. He had findings of acute cholecystitis and a somewhat gangrenous gallbladder wall at a small portion of the gallbladder. No perforation. He was continued on IV antibiotics postoperatively and a GUS drain was placed. His diet was slowly advanced to low-fat. He was increasing his activity as tolerated. Labs were monitored and his white blood cell count normalized by postop day 2. LFTs trending down postop day 1 and 2. Total bilirubin normalized. Patient is tolerating his diet today and appears surgically stable. Discussed the case with Dr. Lowry who would like to leave the GUS drain in place and bring him back to the office later this week for possible drain removal. He was okay with antibiotics being stopped on discharge. Status at Discharge Functional status at discharge: independent ambulation Overall status at discharge: patient is progressing back to baseline Time Spent with Patient Time attestation: Total time spent providing and/or coordinating discharge services: Time spent: Greater than 30 minutes DS: Data Data Completed and Pending Completed studies during hospitalization: Pending at discharge 10/26/23 15:20 Surgical [PTH] Routine Labs on day of discharge: Labs from last 24 hours 10/28/23 04:55 WBC 9.9 RBC 4.26 L Hgb 13.2 L Hct 39.9 L MCV 93.7 MCH 31.0 MCHC 33.1 RDW 12.4 Plt Count 199 MPV 12.3 H Sodium 138 Potassium 3.4 Chloride 106 Carbon Dioxide 28 Anion Gap 4 L BUN 9 Creatinine 0.90 Estim Creat Clear Calc 99 Estimated GFR > 60 Glucose 93 Calcium 8.1 L Total Bilirubin 1.1 AST 49 ALT 122 H Alkaline Phosphatase 70 Total Protein 6.0 L Albumin 2.8 L Preliminary micro results at discharge 10/25/23 23:04 Blood Culture - Preliminary Blood 10/25/23 22:46 Blood Culture - Preliminary Blood Procedures/Treatments: Procedures Operation Date: 10/26/23 14:45 Actual Procedure Side Surgeon p Laparoscopic Cholecystectomy Not Applicable Cortez Lowry MD Imaging Radiologist's impression: ITS Impressions Abdomen/Pelvis CT 10/25/23 21:16 IMPRESSION: Mild esophagitis/gastritis. Gallbladder findings may represent acute cholecystitis in the appropriate clinical context. Mild proximal large bowel dilation, with abrupt caliber change in the proximal descending colon, where a small circumferential mass may be present. Recommend timely referral for colonoscopy. Borderline prostatomegaly. Cystitis versus wall thickening from incomplete urinary bladder distention or outlet obstruction. Discharge Plan Discharge Attending physician on discharge: Cortez Lowry Discharging Clinician: Xochitl Santiago Anticipated Discharge Date/Time: 10/28/23 14:14
== END 2023-10-28 16:50 | disposition home or self-care (01) ==
LOC: ANHED 23:09 → ANH2MED 23:17
PROVIDERS: Nurse Practitioner Family; Admitting Provider Surgery; Emergency Provider Physician Assistant; PCP Family Medicine; Visit Provider Surgery
PROC: 0FT44ZZ Resection of Gallbladder, Percutaneous Endoscopic Approach (ICD-10-PCS; CPT 47562; principal; 2023-10-26 14:45)
DX: K80.00 Calculus of gallbladder with acute cholecystitis without obstruction (principal); K82.A1 Gangrene of gallbladder in cholecystitis; K20.90 Esophagitis, unspecified without bleeding; K63.89 Other specified diseases of intestine; K29.70 Gastritis, unspecified, without bleeding; I10 Essential (primary) hypertension; E78.2 Mixed hyperlipidemia; F10.90 Alcohol use, unspecified, uncomplicated; F12.90 Cannabis use, unspecified, uncomplicated; Z79.899 Other long term (current) drug therapy
CPT/HCPCS: 47562; 36415; 74177; 80053; 81003; 83690; 85025; 85027; 85610; 87040; 88304; 96361; 96365; 96375; 96376; 99285; A9270; C1713; C9113; G0378; J0330; J0696; J1100; J1170; J1836; J1885; J2250; J2270; J2405; J2543; J2704; J3010; J7030; J7120; Q9967